=== PATIENT | male | born 1990 | race Caucasian/White ===

== ENCOUNTER 2021-05-13 07:22 | Emergency (ER) | payer OTHER ==
[~2021-05-13] VITALS: Ht 177.8 cm; Wt 68.0 kg
--- NOTE | 2021-05-13 07:42 | NUR ---
DR. BRANHAM AT BEDSIDE
--- NOTE | 2021-05-13 07:45 | NUR ---
EKG BEING TAKEN
--- NOTE | 2021-05-13 07:45 | NUR ---
BIBS C/O NUMBNESS AND TINGLING IN ARMS AND LEGS AND CHEST PAIN X1 WEEK. REPORTS LAST NIGHT, BLOOD VESSLES IN ARMS WERE ENGORGED AND NUMBNESS AND TINGLING GOT WORSE. PULSES ARE 2+ BILATERALLY IN UPPER AND LOWER EXTREMITIES. ATTACHED TO MONITOR.
[2021-05-13] MEDS ORDERED: GABA300C PO (08:23)
--- NOTE | 2021-05-13 08:34 | NUR ---
Patient discharged to home in stable condition. Written and verbal after care instructions given. Patient verbalizes understanding of instruction.
[2021-05-13 08:44] VITALS: BP 115/62
== END 2021-05-13 08:35 | disposition home or self-care (01) ==
LOC: ER 07:28
DX: R20.2 Paresthesia of skin (principal); R07.89 Other chest pain; Z79.899 Other long term (current) drug therapy
CPT/HCPCS: 71045-TC